=== PATIENT | female | born 1975 | race Two or more races ===

== ENCOUNTER 2017-10-28 09:58 | Emergency (ER) | payer OTHER ==
[~2017-10-28] VITALS: Ht 175.3 cm; Wt 72.6 kg
== END 2017-10-28 12:45 | disposition home or self-care (01) ==
LOC: ER 09:58
DX: J31.2 Chronic pharyngitis (principal)

== ENCOUNTER 2021-12-30 06:35 | Day surgery (SDC) | payer OTHER ==
[~2021-12-30] VITALS: Ht 175.3 cm; Wt 68.9 kg
[~2021-12-30 06:35] MED LIST: ARIMIDEX PO; CALCIUM500 M2 PO; D3 + K2 DOTS 11 EACH PO; MAGNESIUM200 MG PO; MULTIPLE VITAM1 EAC2 PO; VITAMIN C500 M6 PO; ZINC50 M1 PO
== END 2021-12-30 18:15 | disposition home or self-care (01) ==
LOC: CIR.AMB 06:35
PROVIDERS: ATTEND Surgery
DX: D05.11 Intraductal carcinoma in situ of right breast (principal); D24.1 Benign neoplasm of right breast; R59.0 Localized enlarged lymph nodes; Z17.0 Estrogen receptor positive status [ER+]; N62 Hypertrophy of breast; Z42.1 Encounter for breast reconstruction following mastectomy; Z88.0 Allergy status to penicillin; Z88.8 Allergy status to other drugs, medicaments and biological substances; J45.909 Unspecified asthma, uncomplicated
CPT/HCPCS: 19301; 19318; 19281; 38525; 78195; A9541; L8699